=== PATIENT | male | born 1995 | race Caucasian/White ===

== ENCOUNTER 2018-02-01 04:50 | Emergency (ER) | payer MEDICAID ==
[~2018-02-01] VITALS: Ht 154.9 cm; Wt 54.5 kg
[~2018-02-01 04:50] MED LIST: AMOX500T2 PO; BACI3.5O2 RIGHTEYE
[2018-02-01 04:55] VITALS: BP 108/71
[2018-02-01] MEDS ORDERED: HYDROcodone/acetaminophen 10/325mg tab PO STA (04:58)
[2018-02-01] MEDS ORDERED: HYDR-565 PO (05:20)
[2018-02-01] MEDS ORDERED: HYDROcodone/acetaminophen 10/325mg tab PO ONE (05:20)
== END 2018-02-01 06:27 | disposition home or self-care (01) ==
LOC: ER 04:51
DX: S82.832A Other fracture of upper and lower end of left fibula, initial encounter for closed fracture (principal); Z88.1 Allergy status to other antibiotic agents; Z79.899 Other long term (current) drug therapy; W01.0XXA Fall on same level from slipping, tripping and stumbling without subsequent striking against object, initial encounter; Y93.89 Activity, other specified; Y92.89 Other specified places as the place of occurrence of the external cause; Y99.8 Other external cause status
CPT/HCPCS: 29515; 73610; 73630; 99284; A6449